=== PATIENT | female | born 1990 | race Two or more races ===

== ENCOUNTER 2024-05-19 10:37 | Emergency (ER) | payer OTHER ==
[~2024-05-19] VITALS: Ht 152.4 cm; Wt 56.7 kg
[2024-05-19 11:21] LABS: PREGNANCY TEST URINE QUAL NEGATIVE (NEGATIVE)
[2024-05-19] MEDS ORDERED: IBUP-1953 PO (13:27)
[2024-05-19 13:37] VITALS: BP 124/66; TEMP 98.8; O2SAT 97
== END 2024-05-19 13:30 | disposition home or self-care (01) ==
LOC: ER 10:44
DX: R51.9 Headache, unspecified (principal); R42 Dizziness and giddiness; M25.511 Pain in right shoulder; M54.2 Cervicalgia; R11.0 Nausea
CPT/HCPCS: 70450-TC; 84703-TC

== ENCOUNTER 2024-06-21 11:35 | Emergency (ER) | payer OTHER ==
[~2024-06-21] VITALS: Ht 152.4 cm; Wt 50.8 kg
[~2024-06-21 11:35] MED LIST: IBUP-1953 PO
[2024-06-21 11:38] VITALS: BP 112/75; TEMP 98; O2SAT 97
[2024-06-21] MEDS ORDERED: DIPH25CA83 PO (11:50)
[2024-06-21] MEDS ORDERED: FAMO-131 PO (11:50)
[2024-06-21] MEDS ORDERED: HYDR28.318 TP (11:50)
[2024-06-21] MEDS ORDERED: PRED20TA PO (11:50)
== END 2024-06-21 11:57 | disposition home or self-care (01) ==
LOC: ER 11:39
DX: L25.9 Unspecified contact dermatitis, unspecified cause (principal)

== ENCOUNTER 2025-01-22 10:01 | Emergency (ER) | payer OTHER ==
[~2025-01-22] VITALS: Ht 149.9 cm; Wt 55.8 kg
[~2025-01-22 10:01] MED LIST changes: +DIPH25CA83 PO; +FAMO-131 PO; +HYDR28.318 TP; +PRED20TA PO
[2025-01-22 10:12] VITALS: BP 114/68; TEMP 98.4
[2025-01-22] MEDS ORDERED: BACLOFEN (10 MG) 10 MG TABLET ONE (10:54)
[2025-01-22] MEDS ORDERED: BACL5TAB PO (10:54)
[2025-01-22] MEDS ORDERED: KETO10TA2 PO (10:54)
[2025-01-22] MEDS ORDERED: KETOROLAC TROMETHAMINE INJ 30 MG/ML VIAL ONE (10:54)
[2025-01-22 11:03] VITALS: O2SAT 97
[2025-01-22] MEDS: BACLOFEN (10 MG) 10 MG TABLET PO ONE (11:03)
[2025-01-22] MEDS: KETOROLAC TROMETHAMINE INJ 30 MG/ML VIAL IM ONE (11:03)
== END 2025-01-22 11:05 | disposition home or self-care (01) ==
LOC: ER 10:03
DX: M54.12 Radiculopathy, cervical region (principal); Z79.52 Long term (current) use of systemic steroids; Z79.899 Other long term (current) drug therapy
CPT/HCPCS: 99283; 96372; J1885